=== PATIENT | male | born 1985 | race Caucasian/White ===

== ENCOUNTER 2016-10-31 17:58 | Emergency (ER) | payer SELFPAY ==
[~2016-10-31] VITALS: Ht 188 cm; Wt 93.7 kg
[~2016-10-31 17:58] MED LIST: MOTRIN800 MG PO; VALIUM5 MG PO
[2016-10-31 19:14] LABS: HEMATOCRIT 39.9 % (38.0-50.0); MCH 31.1 PG (29.0-34.0); MCHC 36.8 G/DL (30.0-36.0); MCV 84.5 FL (86-99); MEAN PLAT.VOLUME 9.5 uM^3 (9.0-12.4); PLATELET COUNT 273 K/uL (156-360); RBC DIS.WIDTH-CV 12.7 % (11.8-14.6); RBC DIS.WIDTH-SD 38.6 % (39-53); RED BLOOD COUNT 4.72 M/uL (4.00-5.50); WHITE BLOOD COUNT 6.8 K/uL (4.1-10.2)
[2016-10-31 19:21] LABS: CHLORIDE 107 mEq/L (99-109); POTASSIUM 3.9 mEq/L (3.7-5.4); SODIUM 139 mEq/L (136-147)
[2016-10-31 19:23] LABS: GLUCOSE 110 mg/dL (70-99)
[2016-10-31 19:24] LABS: ANION GAP 8 MEQ/L (2-14)
[2016-10-31 19:25] LABS: TOTAL BILIRUBIN 0.3 mg/dL (0.0-1.0)
[2016-10-31 19:27] LABS: ALKALINE PHOSPHATASE 56 IU/L (3-129); GFR ESTIMATE (CALCULATED) > 59 mL/min/
[2016-10-31 19:28] LABS: UREA NITROGEN (BUN) 9 mg/dL (9-23)
[2016-10-31 19:30] LABS: LIPASE 24 U/L (1.0-51.0)
[2016-10-31 19:54] LABS: BILIRUBIN NEGATIVE; BLOOD NEGATIVE; COLOR YELLOW ((YELLOW)); GLUCOSE (STRIP) NEGATIVE; KETONES NEGATIVE; LEUKOCYTES NEGATIVE; NITRITE NEGATIVE; PROTEIN (STRIP) NEGATIVE; SPECIFIC GRAVITY 1.019 (1.000-1.030); UROBILINOGEN 0.2 MG/DL (0.2-1.0)
[2016-10-31 20:09] LABS: ADD MIUA? NO; UCUL ADDED? NO
[2016-10-31] MEDS ORDERED: ZOFRAN ODT4 MG PO (21:50)
[2016-10-31] MEDS ORDERED: PERCOCET 5/31 TABLET PO (21:50)
[2016-10-31] MEDS ORDERED: CIPRO500 MG PO (21:50)
[2016-10-31 22:06] VITALS: BP 114/66
== END 2016-10-31 22:07 | disposition home or self-care (01) ==
LOC: EME 17:58
PROVIDERS: Physician Assistant
DX: R19.7 Diarrhea, unspecified (principal); R10.30 Lower abdominal pain, unspecified
CPT/HCPCS: 74177; 80053; 81003; 83690; 85027; 99281; 99284; J7030